=== PATIENT | female | born 2000 | race Two or more races ===

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

== ENCOUNTER 2019-01-26 15:59 | Inpatient (IN) | payer BC ==
[~2019-01-26] VITALS: Ht 162.6 cm; Wt 114.8 kg
[2019-01-26 17:00] VITALS: Ht 162.6 cm; Wt 114.8 kg
[2019-01-26 17:01] VITALS: BP 122/64; PULSE 75; RESP 18
--- NOTE | 2019-01-26 19:20 | TRIAGE ---
OB Triage Datetime Report Generated by CPN: 01/26/2019 19:20 Datetime: 01/26/2019 16:53 Assessment Type: Triage Maternal Assessment Level of Consciousness: Keenly Alert, Responsive DTR's/Clonus: DTRs 2+; No Clonus Headache: Denies Blurred Vision: No Respiratory Effort: Unlabored; Regular Rhythm; Equal Expansion Breath Sounds, Left: Clear and Equal Breath Sounds, Right: Clear and Equal Nausea/Vomiting: Denies RUQ Epigastric Pain: Denies Lower Extremities Edema: None Degree: None Upper Extremities Edema: None Degree: None Facial Edema: None Fall Risk Assessment History of Falling: (0) No Secondary Diagnosis: (0) No Ambulatory Aid: (0) Bedrest/Nurse Assist IV Therapy: (0) No Gait: (0) Normal/Bedrest/Immobile Mental Status: (0) Oriented to Own Ability Fall Score: 0 Fall Risk Score Definition: No Risk: No action required Datetime: 01/26/2019 16:51 Time of Arrival: 01/26/2019 15:51 EGA: 26.1 Arrived By: Ambulatory; Wheelchair Arrived From: Home Chief Complaint: PT. HERE C/O CRAMPING AND BURNING WITH URINATION X 3 DAYS Movement: Present Contractions: Irregular Rupture of Membranes: Denies Vaginal Bleeding: None Vaginal Discharge: Present Recent Sexual Intercouse: Denies Abdominal Trauma: Not Applicable Patient Complaints: Contractions; Cramping; Back Pain Time Provider Notified: 01/26/2019 17:00 Provider Notified: ESHAGHIAN Initial Plan: FFN/UA/ROM PLUS Datetime: 01/26/2019 16:50 Labor Evaluation Monitor Mode: External Heart Rate Monitor Mode: External US
--- NOTE | 2019-01-26 19:38 | PREOPHP ---
DATE OF ADMISSION: 01/26/2019 HISTORY OF PRESENT ILLNESS: Ms. Eagle Vargas is a 18-year-old 2, para 0, EDC 05/03/2019 , intrauterine at 26 weeks and 1 day gestational age, presented to triage complaining of dy suria and cramping pain radiating to her lower back. She reports good movement. Her care took place at [facility]. MEDICAL HISTORY: None. MEDICATIONS: vitamins. PAST SURGICAL HISTORY: None. OBSTETRICAL HISTORY: x1 missed AB. GYNECOLOGIC HISTORY: 11, regular 3 to 4 days. Denies any sexually transmitted infections. Sexually active with 1 partner. SOCIAL HISTORY: Denies any smoking, drugs or alcohol. FAMILY HISTORY: None. REVIEW OF SYSTEMS: All within normal except history of present illness. PHYSICAL EXAMINATION: VITAL SIGNS: Stable. Temperature 98.3. HEENT: Within normal. LUNGS: CTA bilateral. CARDIOVASCULAR: S1, S2, regular rate and rhythm. ABDOMEN: Gravid. Positive suprapubic tenderness. Positive bilateral CVA tenderness. EXTREMITIES: Negative. No calf tenderness. PELVIC: Vaginal exam: Long, closed. No active pooling or discharge. ASSESSMENT: Intrauterine at 26 weeks and 1 day gestational age with symptomatic pyelonephr itis. PLAN: Admit patient, IV hydration, Rocephin 1 gram IV q.24 hours, follow up urine culture. Dictated By: RUTH BRUNER/TRAE Conf#: [id number] DID#: [id number] CC: RUTH SANCHEZ MD;*EndCC*
[2019-01-26] MEDS: SOD CHLORIDE 0.9% 1,000 ML IV SCH (21:24)
[2019-01-26] MEDS: CEFTRIAXONE 1 GM/50 ML (PMX) 50 ML IVPB SCH (21:25)
[2019-01-26] MEDS: ACETAMINOPHEN 325 MG TAB PO PRN (21:25)
[2019-01-27] MEDS: SOD CHLORIDE 0.9% 1,000 ML IV SCH ×3 (05:38→23:36)
[2019-01-27] MEDS: BETAMET NA PHOS/AC(6 MG/ML) 2 ML INJ SYG IM SCH (09:23)
[2019-01-27] MEDS: PROGESTERONE 100 MG CAP VAG SCH ×2 (09:24→22:21)
[2019-01-27] MEDS: OXYCODONE/ACETAMINOPHEN (10/325) TAB PO PRN (11:48)
[2019-01-27] MEDS: ACETAMINOPHEN 325 MG TAB PO PRN (18:30)
[2019-01-27] MEDS ORDERED: CALCIUM CARBONATE 500 MG CHEW TAB PO PRN (21:00)
--- NOTE | 2019-01-27 22:42 | QN ---
Documentation Comment progress note patient seen and evaluated patient report back pain improved since admission vs stable afebrile ab gravid, mild suprapubic tenderness, mild b/l cva tenderness extremity no edema no calf tenderness a/ iup at 26 wks ga, improving symptoms of pylonephrites , short cervix p/ continue iv antibiotic progesterone vaginal perinatology consult RUTH SANCHEZ MD Jan 27, 2019 22:42
[2019-01-27] MEDS: CEFTRIAXONE 1 GM/50 ML (PMX) 50 ML IVPB SCH (23:36)
[2019-01-28] MEDS: ACETAMINOPHEN 325 MG TAB PO PRN ×2 (00:56→10:36)
[2019-01-28] MEDS: SOD CHLORIDE 0.9% 1,000 ML IV SCH ×3 (03:30→18:24)
[2019-01-28] MEDS: PROGESTERONE 100 MG CAP VAG SCH ×2 (09:16→21:15)
[2019-01-28] MEDS: CALCIUM CARBONATE 500 MG CHEW TAB PO SCH ×3 (09:18→21:15)
[2019-01-28] MEDS: BETAMET NA PHOS/AC(6 MG/ML) 2 ML INJ SYG IM SCH (10:27)
[2019-01-28] MEDS ORDERED: MAGNESIUM SULFATE 4 GM/100 ML 100 ML IV ONE (13:00)
[2019-01-28] MEDS: MAGNESIUM SULFATE 20 GM/500 ML 500 ML IV SCH (14:21)
[2019-01-28] MEDS: CEFTRIAXONE 1 GM/50 ML (PMX) 50 ML IVPB SCH (23:18)
[2019-01-29] MEDS: MAGNESIUM SULFATE 20 GM/500 ML 500 ML IV SCH (00:43)
[2019-01-29] MEDS ORDERED: DOCUSATE SODIUM 100 MG CAP PO PRN (10:30)
[2019-01-29] MEDS: SOD CHLORIDE 0.9% 1,000 ML IV SCH (10:48)
[2019-01-29] MEDS: PROGESTERONE 100 MG CAP VAG SCH ×2 (10:48→21:17)
[2019-01-29] MEDS: CALCIUM CARBONATE 500 MG CHEW TAB PO SCH ×3 (10:48→21:16)
[2019-01-29] MEDS ORDERED: PRENATAL VITAMIN PO ONE (11:00)
[2019-01-29] MEDS: ACETAMINOPHEN 325 MG TAB PO PRN (12:34)
--- NOTE | 2019-01-29 16:36 | QN ---
Documentation Comment Denies any LOF, vaginal bleeding, or decreased movement, Denies any fever. Complains of RLQ pain.Had some nausea last night.toerated clear liquid. Reports she had episodes of chills and night sweats. PE: GA,A&O, NAD Abdomen: Soft, slight tenderness in the RT side, No rebound tenderness,no guarding, Size consistent with date. NST. Cat1 Assessment IUP at 26 weeks and / Admitted for possible pyleonephritis, U cx positive for GBS on Rocephin. Afebrile short cervix, status post steroid and magnesium for neuro prophylaxis still currently on magnesium. No evidence of labor. Etiology of right upper quadrant pain unclear. Ultrasound of abdomen, specifically right lower quadrant including appendix and ovary Abdominal exam benign. No evidence of acute abdomen. Follow-up with urine culture ultrasound and CBC IV fluid Perinatology consultation tomorrow. Neonatology consultation RAY MEJIA MD Jan 29, 2019 16:36
[2019-01-29] MEDS: OXYCODONE/ACETAMINOPHEN (10/325) TAB PO PRN (17:34)
--- NOTE | 2019-01-29 18:48 | QN ---
Documentation Comment called for question on antibiotics for UTI Urine culture reported GBS pos [id number] penicillin derivative is choice been on rocephin plan discontinue rocephin start ampicillin JOESPH GARAY MD Jan 29, 2019 18:48
[2019-01-29] MEDS ORDERED: LACTATED RINGER'S 500 ML IV SCH (19:00)
[2019-01-29] MEDS ORDERED: AMPICILLIN 2 GM/NS (PMX) 100 ML IVPB ONE (19:00)
[2019-01-29] MEDS: LACTATED RINGER'S 1,000 ML IV SCH (20:55)
[2019-01-29] MEDS ORDERED: CEFTRIAXONE 1 GM/50 ML (PMX) 50 ML IVPB SCH (23:00)
[2019-01-30] MEDS: AMPICILLIN 1 GM/NS (PMX) 50 ML IVPB SCH ×7 (00:23→21:15)
[2019-01-30] MEDS: LACTATED RINGER'S 1,000 ML IV SCH ×3 (04:44→20:44)
--- NOTE | 2019-01-30 06:15 | CONS ---
DATE OF ADMISSION: 01/26/2019 DATE OF CONSULTATION: 01/28/2019 HISTORY OF PRESENT ILLNESS: The patient is G2, P0 at 26 and 3 with labor. There were some q uestions about pyelonephritis; however, her back pain apparently has resolved and UA is negative. Ce rvical length is 2.5 cm. She has only been given betamethasone, no tocolysis. RECOMMENDATIONS: My recommendation is to tocolyse her 24 hours given the fact that her cervix is danielle rt for the gestational age and she has lower abdominal pain. Follow up on urinalysis and culture. D ischarge the patient home after magnesium sulfate is finished, if the patient is comfortable, urinaly sis is normal and cervical length is unchanged. Dictated By: MARY ANN LAM MD ST/NTS Conf#: [id number] DID#: [id number] CC: RUTH SANCHEZ MD;*EndCC*
[2019-01-30] MEDS: PROGESTERONE 100 MG CAP VAG SCH ×2 (08:44→21:15)
[2019-01-30] MEDS: CALCIUM CARBONATE 500 MG CHEW TAB PO SCH ×4 (12:50→21:15)
[2019-01-31] MEDS: LACTATED RINGER'S 1,000 ML IV SCH ×2 (00:37→06:31)
[2019-01-31] MEDS: AMPICILLIN 1 GM/NS (PMX) 50 ML IVPB SCH ×4 (00:37→13:31)
[2019-01-31] MEDS: PROGESTERONE 100 MG CAP VAG SCH (09:00)
[2019-01-31] MEDS: CALCIUM CARBONATE 500 MG CHEW TAB PO SCH (12:50)
--- NOTE | 2019-01-31 14:52 | DS ---
Date/Time of Note Date/Time of Note DATE: 01/31/19 TIME: 14:52 Obstetrical Discharge Record Final Diagnosis Final Diagnosis: not delivered Other Final Diagnosis Subjective: Patient without complaints. Objective: Vital signs within normal limits. H/H: 10.9/33.6 General: No apparent distress. Demented: Gravid Extremities nontender to palpation. Assessment/plan: 1. Short cervix2.4 cm. mfm consulted. vaginal progesterone 2. Pyelo-received iv abx. urine cx + for gbs. Nitrofurantoin suppressive upon discharge 3. Anemia of pregnancyferrous sulfate 4. GBS bacturia-GBS ppx when indicated Disposition: Follow-up with primary ob Condition on Discharge Physical Assessment Patient Condition: Stable MILESTONE,STEFFI DO Jan 31, 2019 14:52
[2019-01-31] MEDS ORDERED: DOCU-144 PO (16:35)
[2019-01-31] MEDS ORDERED: PROGESTERONE 100 MG CAP VAG SCH (21:00)
== END 2019-01-31 17:18 | disposition home or self-care (01) | DRG 832 ==
LOC: OBT 15:59 → L-D 15:59 → OBT 18:40 → PP1 01-27 21:11
PROVIDERS: ADMIT Obstetrics & Gynecology; ATTEND Obstetrics & Gynecology
DX: O23.02 Infections of kidney in pregnancy, second trimester (principal); O26.872 Cervical shortening, second trimester; O99.012 Anemia complicating pregnancy, second trimester; Z3A.26 26 weeks gestation of pregnancy
CPT/HCPCS: 76705; 76775; 76817; 80053; 81001; 81003; 82731; 83735; 84112; 85025; 87086; G0463; J0290; J0696; J0702; J3475; J7030; J7120

== ENCOUNTER 2019-02-27 00:52 | Emergency (ER) | payer SELFPAY ==
[~2019-02-27] VITALS: Ht 162.6 cm; Wt 115.9 kg
[~2019-02-27 00:52] MED LIST changes: -IBUP-1561 PO; -LORA-441 PO; +PNV11TAB PO; +PREN1TAB91 PO
[2019-02-27 01:01] VITALS: BP 111/70; PULSE 92; RESP 20; Ht 162.6 cm; Wt 115.9 kg
--- NOTE | 2019-02-27 13:32 | PN ---
Triage Information Date/Time Reason for visit: rectal bleeding with defecation and urination,constipation and vomit x2 Weeks of Gestation 30w4d /Para A1 Diabetes: none Hypertention: none Additional information tolerated food while patient is Triage no vomiting Objective Vital Signs Date Temp Pulse Resp B/P (MAP) Pulse Ox O2 O2 Flow FiO2 Time Delivery Rate 02/27/19 97.1 92 20 111/70 99 01:01 (84) Heart Rate: 140's Heart Rate Comments proper for age CAt I most of ti Contractions: None Results/Medications Imaging Results BPP 03/05 SARAH 17.5 Disposition: ER for evaluation for rectal bleeding ordered by her OB Assessment/Plan A IUP 30w4d rectal bleeding P f/u with her OB after ER evaluation JOESPH GARAY MD Feb 27, 2019 13:32
== END 2019-02-27 03:19 | disposition left against medical advice (07) ==
LOC: FTE 00:52
DX: Z53.21 Procedure and treatment not carried out due to patient leaving prior to being seen by health care provider (principal)

== ENCOUNTER 2019-03-06 | Outpatient (CLI) | payer BC ==
[~2019-03-06] VITALS: Ht 162.6 cm; Wt 117.0 kg
[2019-03-06 00:08] VITALS: Ht 162.6 cm; Wt 117.0 kg
[2019-03-06 00:12] VITALS: BP 111/66; PULSE 75; RESP 20
--- NOTE | 2019-03-06 03:46 | TRIAGE ---
OB Triage Datetime Report Generated by CPN: 03/06/2019 03:46 Datetime: 03/06/2019 02:54 Labor Evaluation Frequency: 0 Monitor Mode: External Pattern: Normal: <= 5 Contractions in 10 Minutes Resting Tone Weott: Relaxed Contraction Comments: ABDOMEN PALPATES SOFT Heart Rate FHR Baseline Rate: 140 Monitor Mode: External US Variability: Moderate 6-25 bpm Decelerations: Variable Comments: APPROPRIATE FOR GESATIONAL AGE Datetime: 03/06/2019 02:31 Monitor Mode: External Monitor Mode: External US Datetime: 03/06/2019 02:00 Labor Evaluation Frequency: 0 Monitor Mode: External Pattern: Normal: <= 5 Contractions in 10 Minutes Heart Rate FHR Baseline Rate: 140 Monitor Mode: External US Variability: Moderate 6-25 bpm Accelerations: 15X15 Decelerations: None Datetime: 03/06/2019 01:38 Monitor Mode: External Pain Assessment Pain Scale: 8 Pain Presence: Intermittent Pain Type: Cramping; Ache Pain Location: Abdomen Pain Goal: 0 Pain Relief Measures: Comfort Measures Pain Assessment Comments: PT SLEEPING UPON ENTERING THE ROOM. PT STATES SHE FEELS BETTER AND HAS FE LT SOME PAIN BUT MUCH WHEN SHE CAME IN. Datetime: 03/06/2019 01:00 Monitor Mode: External Pattern: Normal: <= 5 Contractions in 10 Minutes Contraction Comments: NONE NOTED. ABDOMEN SOFT TO PALPATION Heart Rate FHR Baseline Rate: 150 Monitor Mode: External US Variability: Moderate 6-25 bpm Accelerations: 15X15 Decelerations: None Comments: LOSS OF CONTACT DUE TO LARGE BMI Datetime: 03/06/2019 00:51 Vaginal Exam Pool: Negative Nitrazine: Negative Datetime: 03/06/2019 00:31 Monitor Mode: External Comments: AUDIBLE MOVEMENT Datetime: 03/06/2019 00:19 Time of Arrival: 03/05/2019 23:56 EGA: 31.4 Arrived By: Wheelchair Arrived From: Home Chief Complaint: BACK PAIN Movement: Present Contractions: Irregular Rupture of Membranes: Unsure Vaginal Bleeding: None Vaginal Discharge: Present Recent Sexual Intercouse: Denies Abdominal Trauma: Not Applicable Patient Complaints: Cramping; Back Pain; Urinary Frequency; Pain on Urination Additional Patient Complaints: VAGINAL PRESSURE, CHILLS, LEAKING _ VAGINAL DISCHARGE Time Provider Notified: 03/06/2019 00:36 Provider Notified: JARROD Initial Plan: CEFM, UA, CERVICAL LENGTH, SARAH, ROM+, CBC Datetime: 03/06/2019 00:12 Stage of : OB Triage Assessment Type: Triage Maternal Assessment Level of Consciousness: Keenly Alert, Responsive DTR's/Clonus: DTRs 2+; No Clonus Headache: Denies Blurred Vision: No Respiratory Effort: Unlabored; Regular Rhythm; Equal Expansion Breath Sounds, Left: Clear and Equal Breath Sounds, Right: Clear and Equal Nausea/Vomiting: Denies RUQ Epigastric Pain: Denies Lower Extremities Edema: Bilateral Lower Extremities Degree: 1+ Upper Extremities Edema: None Degree: None Facial Edema: None Fall Risk Assessment History of Falling: (0) No Secondary Diagnosis: (0) No Ambulatory Aid: (0) Bedrest/Nurse Assist IV Therapy: (0) No Gait: (0) Normal/Bedrest/Immobile Mental Status: (0) Oriented to Own Ability Fall Score: 0 Fall Risk Score Definition: No Risk: No action required Monitor Mode: External Monitor Mode: External US Comments: MONITORS APPLIED. AUDIBLE HEART TONES Pain Assessment Pain Scale: 10 Pain Presence: Constant Pain Type: Cramping; Pressure; Ache Pain Location: Abdomen; Back Pain Goal: 0 Pain Relief Measures: Comfort Measures Datetime: 02/26/2019 23:48 Pain Assessment Pain Scale: 0 Pain Presence: None/Denies Pain Type: N/A Datetime: 02/26/2019 22:54 Pain Assessment Pain Scale: 0 Pain Presence: None/Denies Pain Type: N/A Datetime: 02/26/2019 22:10 Pain Assessment Pain Scale: 0 Pain Presence: None/Denies Pain Type: N/A Datetime: 02/26/2019 22:00 Labor Evaluation Frequency: NONE Monitor Mode: External Resting Tone Weott: Relaxed Heart Rate FHR Baseline Rate: 145 Monitor Mode: External US Variability: Moderate 6-25 bpm Accelerations: 15X15 Decelerations: None Category: Category I Datetime: 02/26/2019 21:18 Fall Score: 0 Fall Risk Score Definition: No Risk: No action required Datetime: 02/26/2019 21:15 EGA: 30.4 Datetime: 02/26/2019 21:09 Stage of : OB Triage Datetime: 01/30/2019 19:30 Fall Score: 0 Fall Risk Score Definition: No Risk: No action required Datetime: 01/29/2019 19:50 Fall Score: 0 Fall Risk Score Definition: No Risk: No action required Datetime: 01/28/2019 19:20 Fall Score: 20 Fall Risk Score Definition: No Risk: No action required Datetime: 01/28/2019 08:15 Fall Score: 0 Fall Risk Score Definition: No Risk: No action required Datetime: 01/27/2019 21:31 Fall Score: 0 Fall Risk Score Definition: No Risk: No action required Datetime: 01/27/2019 19:48 Fall Score: 20 Fall Risk Score Definition: No Risk: No action required Datetime: 01/27/2019 07:39 Fall Score: 20 Fall Risk Score Definition: No Risk: No action required Datetime: 01/26/2019 20:41 Fall Score: 20 Fall Risk Score Definition: No Risk: No action required Datetime: 01/26/2019 20:39 EGA: 26.1 Datetime: 01/26/2019 16:53 Fall Score: 0 Fall Risk Score Definition: No Risk: No action required Datetime: 01/26/2019 16:51 EGA: 26.1
--- NOTE | 2019-03-06 07:40 | PN ---
Triage Information Date/Time 03/06/1904/16/732 Reason for visit: backpain with vaginal pressure sensation,?leaking fluid Weeks of Gestation [id number] /Para A1(sab) Diabetes: none Hypertention: none Additional information chills? pain is positional william when she shift body ,standing or walking alleviated by resting feels better after rest in bed Objective Vital Signs Date Temp Pulse Resp B/P (MAP) Pulse Ox O2 O2 Flow FiO2 Time Delivery Rate 03/06/19 98.5 75 20 111/66 Room Air 00:12 (81) Heart Rate: 150's Contractions: None Exam ROM Plus Neg Results/Medications Result Diagram: 03/06/19 0058 Results 24 hrs Laboratory Tests Test 03/06/19 00:00 03/06/19 00:58 Urine Color YELLOW Urine Clarity CLEAR Urine pH 6.0 Urine Specific [place] 1.019 Urine Ketones NEGATIVE Urine Nitrite NEGATIVE Urine Bilirubin NEGATIVE Urine Urobilinogen NEGATIVE Urine Leukocyte Esterase NEGATIVE Urine Hemoglobin NEGATIVE Urine Glucose NEGATIVE Urine Total Protein NEGATIVE Membranes Rupture NEGATIVE White Blood Count 12.8 H Red Blood Count 4.25 Hemoglobin 11.5 L Hematocrit 37.2 Mean Corpuscular Volume 87.5 Mean Corpuscular Hemoglobin 27.1 L Mean Corpuscular Hemoglobin Concent 30.9 L Red Cell Distribution Width 14.9 H Platelet Count 244 Mean Platelet Volume 10.6 H Immature Granulocytes % 0.500 H Neutrophils % 67.8 Lymphocytes % 24.8 Monocytes % 5.8 Eosinophils % 0.9 Basophils % 0.2 Nucleated Red Blood Cells % 0.0 Immature Granulocytes # 0.070 H Neutrophils # 8.7 H Lymphocytes # 3.2 H Monocytes # 0.7 Eosinophils # 0.1 Basophils # 0.0 Nucleated Red Blood Cells # 0.0 Imaging Results CVL3.7 SARAH 13.9 Disposition: Discharge Assessment/Plan A IUP 31w5d round ligament syndrome P discharge home with abdominal binder advise to reduce the activities RTH prn JOESPH GARAY MD Mar 06, 2019 07:40
== END 2019-03-06 03:05 | disposition home or self-care (01) ==
LOC: OBT → L-D 00:03 → OBT 03:05
PROVIDERS: ATTEND Obstetrics & Gynecology
DX: O26.893 Other specified pregnancy related conditions, third trimester (principal); R10.9 Unspecified abdominal pain; Z3A.31 31 weeks gestation of pregnancy
CPT/HCPCS: 76815; 76817; 81003; 84112; 85025; 87086; Z7500; Z7610; G0463

== ENCOUNTER 2019-03-13 12:21 | Inpatient (IN) | payer BC ==
[~2019-03-13] VITALS: Ht 160 cm; Wt 116.1 kg
[2019-03-13 12:33] VITALS: Ht 160 cm; Wt 116.1 kg
[2019-03-13 12:34] VITALS: BP 124/70; PULSE 102; RESP 19
[2019-03-13] MEDS ORDERED: LACTATED RINGER'S 1,000 ML IV SCH (13:42)
[2019-03-13] MEDS: SOD CHLORIDE 0.9% 1,000 ML IV SCH ×2 (16:09→23:48)
[2019-03-13] MEDS: CEFTRIAXONE 1 GM/50 ML (PMX) 50 ML IVPB SCH (16:10)
[2019-03-13] MEDS: ACETAMINOPHEN 1000MG/100ML IV 100 ML IVPB SCH (16:58)
[2019-03-14] MEDS: ACETAMINOPHEN 1000MG/100ML IV 100 ML IVPB SCH ×3 (00:13→08:17)
[2019-03-14] MEDS: SOD CHLORIDE 0.9% 1,000 ML IV SCH ×2 (08:02→18:07)
[2019-03-14] MEDS: PRENATAL VITAMIN PO SCH (09:13)
[2019-03-14] MEDS: FERROUS SULFATE (EC) 325 MG TAB PO SCH (09:13)
[2019-03-14] MEDS ORDERED: ACETAMINOPHEN 325 MG TAB PO PRN (11:30)
[2019-03-14] MEDS ORDERED: AL HYDROX/MG HYDROX/SIMETH 30 ML CUP PO PRN (13:30)
[2019-03-14] MEDS: CEFTRIAXONE 1 GM/50 ML (PMX) 50 ML IVPB SCH (16:09)
[2019-03-14] MEDS ORDERED: FAMOTIDINE 20 MG TAB PO PRN (22:00)
[2019-03-15] MEDS: SOD CHLORIDE 0.9% 1,000 ML IV SCH (01:30)
[2019-03-15] MEDS: FERROUS SULFATE (EC) 325 MG TAB PO SCH (09:06)
[2019-03-15] MEDS: PRENATAL VITAMIN PO SCH (09:06)
== END 2019-03-15 09:36 | disposition home or self-care (01) | DRG 833 ==
LOC: OBT 12:21 → L-D 12:22 → OBT 13:46
PROVIDERS: ADMIT Obstetrics & Gynecology; ATTEND Obstetrics & Gynecology
DX: O23.03 Infections of kidney in pregnancy, third trimester (principal); Z3A.32 32 weeks gestation of pregnancy
CPT/HCPCS: 76818; 81001; 85025; 87086; G0463; J0131; J0696; J7030; J7120